=== PATIENT | male | born 1960 | race Caucasian/White ===

== ENCOUNTER 2018-10-20 14:00 | Day surgery (SDC) | payer OTHER, BC ==
[~2018-10-20 14:00] MED LIST: Bactrim Ds Tab1 EACH PO; Flomax0.4 MG PO; KETO10 PO; Keflex250 MG PO; Norco 5-325 Ta1 EACH PO; Percocet 5-3251 EACH PO; Zofran Odt4 MG PO
[2018-10-20] MEDS ORDERED: CEPH500 (19:00)
[2018-10-20] MEDS ORDERED: XARELTO2.5 MG PO (19:00)
[2018-10-20] MEDS ORDERED: HYDR1TAB94 PO (19:01)
[2018-10-20] MEDS ORDERED: TRAM50 PO (19:02)
[2018-11-21] MEDS ORDERED: ONDA8 PO (19:02)
[2018-11-21] MEDS ORDERED: Augmentin 875-1 EACH PO (19:03)
[2018-11-21] MEDS ORDERED: PROC5 PO (19:46)
[2018-11-21] MEDS ORDERED: Pepcid20 MG PO (19:46)
== END 2018-10-20 23:03 | disposition home or self-care (01) ==
LOC: WOUND 14:00
DX: T81.32XA Disruption of internal operation (surgical) wound, not elsewhere classified, initial encounter (principal); R50.9 Fever, unspecified; R11.0 Nausea; L03.115 Cellulitis of right lower limb; Z72.0 Tobacco use
CPT/HCPCS: G0463

== ENCOUNTER 2018-10-20 15:39 | Inpatient (IN) | payer OTHER, BC ==
[~2018-10-20] VITALS: Ht 185.4 cm; Wt 88.9 kg
[2018-10-20 16:58] LABS: BASOPHILS ABSOLUTE AUTO 0.08 K/mm3 (0.00-0.23); BASOPHILS PERCENT AUTO 0 % (0-2); EOSINOPHILS ABSOLUTE AUTO 0.06 K/mm3 (0.00-0.68); EOSINOPHILS PERCENT AUTO 0 % (0-6); Hemoglobin 13.7 g/dL (13.5-17.5); IMMATURE GRAN ABSOLUTE AUTO 0.08 K/mm3 (0.00-0.10); IMMATURE GRAN PERCENT AUTO 0 % (0-1); LYMPHOCYTES ABSOLUTE AUTO 1.93 K/mm3 (0.84-5.20); LYMPHOCYTES PERCENT AUTO 10 % (21-46); MONOCYTES ABSOLUTE AUTO 1.36 K/mm3 (0.16-1.47); MONOCYTES PERCENT AUTO 7 % (4-13); Mean Corpuscular HGB 30.6 pg (26.0-34.0); Mean Corpuscular HGB Conc 33.4 g/dL (31.5-36.5); Mean Corpuscular Volume 92 fL (80-100); Mean Platelet Volume 9.4 fL (9.1-12.4); NEUTROPHILS ABSOLUTE AUTO 15.09 K/mm3 (1.96-9.15); NEUTROPHILS PERCENT AUTO 81 % (41-73); Platelet Count 545 K/mm3 (150-400); RDW Coefficient Variation 12.8 % (11.7-14.2); RDW Standard Deviation 43.2 fL (35.1-46.3); Red Blood Cell Count 4.47 M/mm3 (4.30-5.90)
[2018-10-20 17:16] LABS: Alanine Aminotransfer (ALT/SGP 34 U/L (12-78); Albumin, Blood 3.7 g/dL (3.4-5.0); Albumin/Globulin Ratio 0.9 (0.8-1.8); Alk Phos 89 U/L (50-136); Anion Gap 8 mmol/L (6-16); Aspartate Aminotrans (AST/SGOT 14 U/L (12-37); Bilirubin, Total 0.9 mg/dL (0.1-1.0); Blood Urea Nitrogen 17 mg/dL (8-24); CO2, Blood 26 mmol/L (21-32); Calcium, Blood 9.5 mg/dL (8.5-10.1); Chloride, Blood 100 mmol/L (98-108); Creatinine, Blood 0.77 mg/dL (0.60-1.20); Globulin, Blood 4.1 g/dL (2.2-4.0); Glomerular Filtration Rate >60 (60-); Glucose, Blood 113 mg/dL (70-99); Potassium, Blood 3.9 mmol/L (3.5-5.5); Sodium, Blood 134 mmol/L (136-145); Total Protein, Blood 7.8 g/dL (6.4-8.2)
[2018-10-20] MEDS ORDERED: CEPH500 (19:00)
[2018-10-20] MEDS ORDERED: XARELTO2.5 MG PO (19:00)
[2018-10-20] MEDS ORDERED: HYDR1TAB94 PO (19:01)
[2018-10-20] MEDS ORDERED: TRAM50 PO (19:02)
[2018-10-20 20:05] LABS: International Normalized Ratio 1.11; Prothrombin Time Results 11.4 Sec (9.7-11.5)
[2018-10-21 02:01] LABS: Hematocrit 34.6 % (37.0-53.0); Hemoglobin 11.5 g/dL (13.5-17.5); Mean Corpuscular HGB 30.8 pg (26.0-34.0); Mean Corpuscular HGB Conc 33.2 g/dL (31.5-36.5); Mean Corpuscular Volume 93 fL (80-100); Mean Platelet Volume 9.4 fL (9.1-12.4); Platelet Count 445 K/mm3 (150-400); RDW Coefficient Variation 13.2 % (11.7-14.2); Red Blood Cell Count 3.73 M/mm3 (4.30-5.90); White Blood Cell Count 13.38 K/mm3 (4.00-11.30)
[2018-10-21 02:25] LABS: Alanine Aminotransfer (ALT/SGP 24 U/L (12-78); Albumin, Blood 2.8 g/dL (3.4-5.0); Albumin/Globulin Ratio 0.8 (0.8-1.8); Alk Phos 68 U/L (50-136); Anion Gap 9 mmol/L (6-16); Aspartate Aminotrans (AST/SGOT 11 U/L (12-37); Bilirubin, Total 0.8 mg/dL (0.1-1.0); Blood Urea Nitrogen 16 mg/dL (8-24); Bun/Creatinine Ratio 20.4 (12.0-20.0); CO2, Blood 25 mmol/L (21-32); Calcium, Blood 8.5 mg/dL (8.5-10.1); Chloride, Blood 104 mmol/L (98-108); Creatinine, Blood 0.79 mg/dL (0.60-1.20); Globulin, Blood 3.5 g/dL (2.2-4.0); Glomerular Filtration Rate >60 (60-); Glucose, Blood 137 mg/dL (70-99); Potassium, Blood 3.9 mmol/L (3.5-5.5); Sodium, Blood 138 mmol/L (136-145); Total Protein, Blood 6.3 g/dL (6.4-8.2)
--- NOTE | 2018-10-21 13:25 | NUR ---
PT IS READY FOR SURGERY, PT PLACED IN GOWN, PT HAS EMPTIED BLADDER, PT HAS BEEN NPO SINCE MIDNIGHT.
--- NOTE | 2018-10-21 13:48 | NUR ---
History, Chart, Medications and Allergies reviewed before start of procedure. Lungs clear T/O to Auscultation. Patient confirms NPO status and agrees with scheduled surgery.
--- NOTE | 2018-10-21 14:40 | NUR ---
10/21/18 1440 Josephine Velasquez VANCOMYCIN POWDER SPRINKLED INTO WOUND BY DR. CHRISTINA INTRAOPERATIVELY, PT ON SCHEDULED ANTIBIOTIC
--- NOTE | 2018-10-21 15:52 | NUR ---
"FURNACE COOLER | WASTED DEMEROL IN PYXIS THIS RN AND CHICA GONZALEZ RN WASTED 25NG OF DEMEROL IN THE PYXIS MACHINE. 25MG OF DEMEROL GIVEN TO PATIENT. INITIAL WASTE IN THE PYXIS WAS INCORRECT IT WAS INITIALLY ENTERED 50MG WASTED. THIS WAS THEN EDITED TO 25MG WITH BOTH THIS RN AND CHICA GONZALEZ RN SIGNING ON THE PYXIS."
--- NOTE | 2018-10-21 16:25 | NUR ---
PT BACK FROM PACU. PT IS AWAKE, ALERT AND ORIENTED. WOUND VAC IN PLACE, SUCTION INTACT. MARLYS WRAP TO RIGHT FOOT, C/D/I. PT STATES HIS PAIN IS 8/10. PO NORCO WAS GIVEN. PT IS ON ROOM AIR. VSS. WCTM
--- NOTE | 2018-10-21 20:18 | NUR ---
CONTACTED DR. DOMINGO WITH CRITICAL VALUE - (+) BLOOD CULTURES, GRAM (-) RODS. INFORMED HER THAT PT IS CURRENTLY BEING GIVEN VANC AND ZOSYN. STATES THAT WE WILL CONTINUE CURRENT POC. WILL CONTINUE TO MONITOR.
--- NOTE | 2018-10-22 06:35 | NUR ---
LYING IN SEMI FOWLERS WITH EYES OPEN WHILE WATCHING YOUTUBE ON HIS PHONE. STATES THAT PAIN IF WELL MANAGED. NURSING REITERATED NEED TO CALL FOR 0ASSISTANCE WITH NEEDS, VOICES UNDERSTANDING, DENIES FURTHER NEEDS AT THIS TIME. SAFETY MEASURES IN PLACE. WILL CONTINUE TO MONITOR.
--- NOTE | 2018-10-22 07:15 | NUR ---
recvd report from previous rn jessica, pt asleep in bed, call light within reach, bed rails up x 2, bed in lowest position
--- NOTE | 2018-10-22 07:55 | NUR ---
PT Rene working with pt, lab to draw blood. recvd call from pt's to give update of condition. notified pt. assessed for pain control. pt states it is much better controlled, at 4-5 currently, does not request pain medication at this time
[2018-10-22 08:22] LABS: BASOPHILS ABSOLUTE AUTO 0.05 K/mm3 (0.00-0.23); BASOPHILS PERCENT AUTO 1 % (0-2); EOSINOPHILS PERCENT AUTO 3 % (0-6); Hematocrit 32.9 % (37.0-53.0); Hemoglobin 10.6 g/dL (13.5-17.5); IMMATURE GRAN ABSOLUTE AUTO 0.02 K/mm3 (0.00-0.10); IMMATURE GRAN PERCENT AUTO 0 % (0-1); LYMPHOCYTES ABSOLUTE AUTO 2.62 K/mm3 (0.84-5.20); LYMPHOCYTES PERCENT AUTO 33 % (21-46); MONOCYTES ABSOLUTE AUTO 1.02 K/mm3 (0.16-1.47); MONOCYTES PERCENT AUTO 13 % (4-13); Mean Corpuscular HGB 30.8 pg (26.0-34.0); Mean Corpuscular HGB Conc 32.2 g/dL (31.5-36.5); Mean Platelet Volume 9.7 fL (9.1-12.4); NEUTROPHILS ABSOLUTE AUTO 4.03 K/mm3 (1.96-9.15); NEUTROPHILS PERCENT AUTO 51 % (41-73); Platelet Count 383 K/mm3 (150-400); Red Blood Cell Count 3.44 M/mm3 (4.30-5.90); White Blood Cell Count 7.94 K/mm3 (4.00-11.30)
[2018-10-22 08:23] LABS: Mean Corpuscular Volume 96 fL (80-100)
[2018-10-22 08:28] LABS: Anion Gap 5 mmol/L (6-16); Blood Urea Nitrogen 9 mg/dL (8-24); Bun/Creatinine Ratio 14.7 (12.0-20.0); CO2, Blood 29 mmol/L (21-32); Calcium, Blood 8.5 mg/dL (8.5-10.1); Chloride, Blood 107 mmol/L (98-108); Creatinine, Blood 0.61 mg/dL (0.60-1.20); Glomerular Filtration Rate >60 (60-); Glucose, Blood 100 mg/dL (70-99); Potassium, Blood 3.9 mmol/L (3.5-5.5); Sodium, Blood 141 mmol/L (136-145)
[2018-10-22 08:30] LABS: Vancomycin, Trough 7.9 ug/mL (5.0-10.0)
--- NOTE | 2018-10-22 16:53 | NUR ---
shift summary: pt remained a/0 x 4, pleasant/cooperative, no n/v, tolerated regular diet intake, urine output >600 ml, no BM this shift. pt states pain controlled oer DEC, states to pain control to 2-3/ following medication. Dr Cook and Dr. Galindo to round on pt this shift. pt received IV abx per mar wnl. pt worked with physical therapy x 1 today. family visited x 4 today.
[2018-10-23 05:13] LABS: BASOPHILS ABSOLUTE AUTO 0.05 K/mm3 (0.00-0.23); BASOPHILS PERCENT AUTO 1 % (0-2); EOSINOPHILS ABSOLUTE AUTO 0.31 K/mm3 (0.00-0.68); EOSINOPHILS PERCENT AUTO 5 % (0-6); Hematocrit 34.1 % (37.0-53.0); Hemoglobin 11.1 g/dL (13.5-17.5); IMMATURE GRAN ABSOLUTE AUTO 0.01 K/mm3 (0.00-0.10); IMMATURE GRAN PERCENT AUTO 0 % (0-1); LYMPHOCYTES ABSOLUTE AUTO 3.23 K/mm3 (0.84-5.20); LYMPHOCYTES PERCENT AUTO 52 % (21-46); MONOCYTES ABSOLUTE AUTO 0.56 K/mm3 (0.16-1.47); MONOCYTES PERCENT AUTO 9 % (4-13); Mean Corpuscular HGB 30.9 pg (26.0-34.0); Mean Corpuscular HGB Conc 32.6 g/dL (31.5-36.5); Mean Corpuscular Volume 95 fL (80-100); NEUTROPHILS ABSOLUTE AUTO 2.07 K/mm3 (1.96-9.15); NEUTROPHILS PERCENT AUTO 33 % (41-73); Platelet Count 460 K/mm3 (150-400); RDW Coefficient Variation 12.6 % (11.7-14.2); RDW Standard Deviation 43.6 fL (35.1-46.3); Red Blood Cell Count 3.59 M/mm3 (4.30-5.90); White Blood Cell Count 6.23 K/mm3 (4.00-11.30)
--- NOTE | 2018-10-23 08:23 | NUR ---
SUMMARY PT REQURING PO AND IV PAIN MEDS TONIGHT.CONTINUES ABLE TO WIGGLE TOES R. WOUND VAC PATENT. PT RECEIVING IV ANTIBIOTICS. PT PRELIMINARY BLOOD CX WAS POSITIVE AND FINAL REPORT POSITIVE REPORTED TO Mao HICKS.
--- NOTE | 2018-10-23 12:36 | NUR ---
Initial Visit: Palliative Care Consult for AD/POLST and symptom management. Pt resting in bed and is A&O x 4. He reports 6/10 pain in his right leg. He reports the current regimen is managing his pain. He reports he will get another pain pill soon and will bring the pain down to 3/10 or less. Pt daphne dyspnea and anxiety. He is of [place] and lives at home with his and mother in law. Pt reports being able to ambulate independently with the FWW and when home he has crutches he can use. He also reports that he has a wheel chair at home if needed. Discussion was made about Advance Directives and POLST. Pt expresses interest and request information on both. Educated Pt on both forms. Pt states he would like to wait to fill forms out until his arrives. Instructed Pt to call palliative care if any questions arise when completing forms. Spoke with Pt's nurse and she reports no concerns at this time. notes indicate wound vac may be D/C today or tomorrow and will be able to further evaluate wound. Plan is to obtain POLST and or Advance Directive once completed. Plan to F/U tomorrow upon 's decision of wound vac. If continuation of wound vac is required then home health referral may be indicated. Will remain available.
--- NOTE | 2018-10-23 15:20 | NUR ---
SHIFT SUMMARY PT A&OX4, VSS, AFEBRILE, TELE SR @ 71. POD#2 I&D RLE, WOUND VAC & MARLYS WRAP ON, ELEVATED, ICE ON, NWB. PAIN MANAGED WITH 10 MG NORCO Q4. PABLO PO, DENIES N&V. VOIDING WELL, USES URINAL. AMB W/FWW & GB TO BRP FOR 2 BM'S TODAY, DOES WELL NWB. PT NEEDS NEW WALKING BOOT PRIOR TO DC; OLD BOOT NEEDS TO BE DISCARDED D/T CONCERNS IT MAY HAVE SOME INFECTIOUS MATERIAL ON IT. PLAN IS FOR WOUND VAC TO BE DC'D TOMORROW AND THEN SURGEON WILL DECIDE HOW TO PROCEED. WILL CTM & TX PER EMAR UNTIL REPORT GIVEN TO NEXT RN.
--- NOTE | 2018-10-24 07:05 | NUR ---
recvd report from previous RN Costa, pt awake in bed, a/0 x 4, pleasant/cooperative. pt reports pain controlled to his expectation. bed rails up x 2, operative foot elevated with ice pack, wound vac sealed and functioning. call light within reach.
--- NOTE | 2018-10-24 07:30 | NUR ---
SUMMARY PT TOLERATING PO PAIN MEDS WITH REPORT OF GOOD EFFECT.
--- NOTE | 2018-10-24 12:00 | NUR ---
dr cash to round on pt, removed wound vac dressing and gave instructions for redressing. pt up in chair, medicated for wound vac change. 1215- account installer Megan and this RN changed wound vac dressing per MD instructions, pt tolerated well
--- NOTE | 2018-10-24 17:12 | NUR ---
shift summary: vss, no acute changes, pt reports no n/v, tolerated regular diet. pt with >800 ml urine output clear yellow urine. pt tolerated PO pain medication with control of pain per pt's expectation. Dr. Cook removed wound vac to assess and ordered change of dressing. Dr Marie rounded on pt and awaiting infectious disease consult. pt will be receiving outpatient IV therapy following PICC line insertion and discharge. per protocol, pt will require blood cultures to determine positive/negative culture prior to PICC line insertion. Procedural nurse will be available tomorrow if negative blood culture for PICC insertion. pt up to bathroom x 1 this shift.
--- NOTE | 2018-10-25 06:48 | NUR ---
LYING IN SEMI FOWLERS WHILE WATCHING TV. NO FURTHER CHANGES SINCE START OF SHIFT. PAIN MANAGED WITH PO PAIN MEDS PER MD ORDERS. PT RESTED WELL THIS SHIFT. WOKE UP IN PAIN A COUPLE OF TIMES AND STATED THAT HE WISHED THAT HE HAD WOKEN UP BEFORE THE PAIN BECAME BAD IT WAS EACH TIME. DENIES FURHTER NEEDS AT THIS TIME. SAFETY MEASURES IN PLACE. WILL GIVE HAND OFF TO ONCOMING SHIFT USING SBAR DURING BEDSIDE REPORT.
--- NOTE | 2018-10-25 17:26 | NUR ---
SHIFT SUMMARY PATIENT HAS BEEN RELAXED TODAY. MEDICATED ONCE FOR PAIN TODAY, AND ONCE FOR NAUSEA. PATIENT HAS BEEN PLEASANT WITH MYSELF, HAD A LONG CONVERSATION WITH THE PATIENT TODAY ABOUT THE POSSIBLE EFFECTS OF REBOUND NAUSEA AFTER HE ASKED WHY HE FELT THAT HE WAS GETTING SICK. THE PATIENT IS ALERT AND ORIENTED. PATIENT GOT HIMSELF TO THE BATHROOM TODAY
--- NOTE | 2018-10-25 20:56 | NUR ---
TO ASSIST HIM IF NEEDED.
--- NOTE | 2018-10-26 04:49 | NUR ---
SUMMARY NO ACUTE CHANGES NOTED FROM ASSESSMENT. WOUND VAC REMAINS IN PLACE, SUCTION INTACT. CIRC WNL, PT DENIES N/T. PAIN MANAGED WITH PO NORCO. VSS. PT USING THE URINAL THROUGH THE NIGHT. VOIDING WNL. CALL LIGHT IN REACH.
--- NOTE | 2018-10-26 18:51 | NUR ---
SHIFT SUMMARY PT A&OX4, VSS. POD #5 I&D RLE, WOUND VAC IN PLACE, NEW BOOT IN ROOM, NWB. PAIN MANAGED WITH 10 MG OXY. PABLO PO, DENIES N&V, DOES REPORT 4 SOFT BM'S TODAY FOLLOWING MEALS. PT AMB NWB W/SBA & FWW TO BRP. PICC PLACED IN LUE TODAY, FLUSHES WELL, INFUSING ANTIBIOTICS SCHEDULED PER EMAR. PLAN IS FOR DC TOMORROW. WILL CTM & TX PER EMAR UNTIL REPORT GIVEN TO ONCOMING LORNA RN.
--- NOTE | 2018-10-27 06:59 | NUR ---
GEOFFREY PT TAKING PO PAIN MEDS Q 4 HR WITH REPORTED GOOD EFFECT. PT SLEPT OFF AND ON. IV ANTIBIOTICS INFUSING. PT ANXIOUS FOR DISCHARGE HOME .
[2018-10-27 08:19] LABS: BASOPHILS ABSOLUTE AUTO 0.05 K/mm3 (0.00-0.23); BASOPHILS PERCENT AUTO 1 % (0-2); EOSINOPHILS ABSOLUTE AUTO 0.51 K/mm3 (0.00-0.68); EOSINOPHILS PERCENT AUTO 6 % (0-6); Hematocrit 34.5 % (37.0-53.0); Hemoglobin 11.1 g/dL (13.5-17.5); IMMATURE GRAN ABSOLUTE AUTO 0.02 K/mm3 (0.00-0.10); IMMATURE GRAN PERCENT AUTO 0 % (0-1); LYMPHOCYTES ABSOLUTE AUTO 3.25 K/mm3 (0.84-5.20); LYMPHOCYTES PERCENT AUTO 35 % (21-46); MONOCYTES ABSOLUTE AUTO 0.69 K/mm3 (0.16-1.47); MONOCYTES PERCENT AUTO 7 % (4-13); Mean Corpuscular HGB 30.1 pg (26.0-34.0); Mean Corpuscular HGB Conc 32.2 g/dL (31.5-36.5); Mean Corpuscular Volume 94 fL (80-100); Mean Platelet Volume 9.6 fL (9.1-12.4); NEUTROPHILS ABSOLUTE AUTO 4.81 K/mm3 (1.96-9.15); NEUTROPHILS PERCENT AUTO 52 % (41-73); Platelet Count 525 K/mm3 (150-400); RDW Coefficient Variation 12.9 % (11.7-14.2); RDW Standard Deviation 43.8 fL (35.1-46.3); Red Blood Cell Count 3.69 M/mm3 (4.30-5.90); White Blood Cell Count 9.33 K/mm3 (4.00-11.30)
[2018-10-27 08:41] LABS: Anion Gap 7 mmol/L (6-16); Blood Urea Nitrogen 13 mg/dL (8-24); Bun/Creatinine Ratio 17.5 (12.0-20.0); CO2, Blood 29 mmol/L (21-32); Calcium, Blood 8.8 mg/dL (8.5-10.1); Chloride, Blood 104 mmol/L (98-108); Creatinine, Blood 0.74 mg/dL (0.60-1.20); Glomerular Filtration Rate >60 (60-); Glucose, Blood 116 mg/dL (70-99); Potassium, Blood 3.8 mmol/L (3.5-5.5); Sodium, Blood 140 mmol/L (136-145)
--- NOTE | 2018-10-27 15:23 | NUR ---
SHIFT SUMMARY PT A&OX4, VSS, POD#6 I&D RLE, WOUND VAC, MARLYS WRAP, ELEVATED, ICE ON. PAIN MANAGED WITH 10 MG NORCO. PABLO PO, DENIES N&V. VOIDING WELL USING URINAL. AMB SBA W/FWW TO BRP FOR BM'S; PT DOES WELL NWB. PICC LINE LUE FLUSHES AND DRAWS WELL. PLAN IS FOR DC TOMORROW; AWAITING HOME IV PUMP; PT HAS APPOINTMENT AT [facility] FOR WOUND VAC CHANGE AT 1530. WILL CTM & TX PER EMAR UNTIL REPORT GIVEN TO ONCLORENA ROTHMAN RN.
--- NOTE | 2018-10-27 17:34 | NUR ---
SHREYAS FROM [facility] CALLED AND CANCELLED WOUND VAC APPT AT 1530 ON Wednesday10/28/18. THE PLAN IS FOR THE NURSE TO CHANGE WOUND VAC AND DRESSING CHANGE PRIOR TO PT'S DISCHARGE ON SATURDAY 10/28, AND THEN PT FOLLOW UP WITH ORTHO SURGEON ON AND NEW ORDERS CAN BE OBTAINED FOR PT'S CONTINUANCE OF CARE AT WOUND CLINIC.
--- NOTE | 2018-10-28 06:17 | NUR ---
SUMMARY PT CONTINUES WITH NORCO PO FOR PAIN CONTROL. PT ANXIOUS FOR POSSIBILTY OF DISCHARGE HOME TODAY.
--- NOTE | 2018-10-28 18:24 | NUR ---
SHIFT SUMMARY ASSUMED CARE AT 1500, PT HAS BEEN APPROPRAITE. WOUND VAC AND PICC DRSG CHANGED. ARRANGEMENTS MADE FOR DISCHARGE TOMORROW. PER DR CHRISTINA, WOUND VAC TO BE CHANGED WEDNESDAY AT HIS OFFICE AND THEN EVERY 4 DAYS AFTER BY HOME HEALTH. IV ABX SUPPLIES AND MEDICATIONS TO BE DELIVERED TONIGHT. SPOKE WITH [facility] EDUCATOR WHOM PLANS TO BE HERE BETWEEN [phone] TO COMPLETE EDUCATION.
--- NOTE | 2018-10-29 04:08 | NUR ---
SHIFT SUMMARY: PT POD 7 FOR I&D FOR PREVIOUS TIB/FIB FX. PAIN MANAGED WITH NORCO Q4. ABX INFUSING. SALINE LOCKED BETWEEN TX. MARLYS WRAP C/D/I. SHIPMENT OF MEDICAL EQUIPMENT ARRIVED ON TIME. SITTING IN PT'S ROOM. PLAN IS FOR PT TO DISCHARGE THIS MORNING AFTER MEETING WITH NURSE EDUCATOR ABOUT HOME ABX INFUSIONS. NO CONCERNS AT THIS TIME. CALL LIGHT IN REACH.
[2018-10-29] MEDS ORDERED: SACC250C PO (13:02)
[2018-10-29] MEDS ORDERED: Zosyn 4.54.5 GM/100 IV (13:02)
--- NOTE | 2018-10-29 16:25 | NUR ---
SHIFT SUMMARY/DC PT HAS HAD NO ACUTE CHANGES THIS SHIFT, MEDICATED PER MAR FOR PAIN. SWITCHED WOUND VAC FOR VAC THAT PT WILL BE USING AT HOME-EDUCATED ON CHANGING CANISTERS AND TROUBLE SHOOTING ALARMS. LG IS W/PT AT THIS TIME INSTRUCTING PT & ON HOME IV ANTIBIOTIC INFUSIONS. REVIEWED DC INSTRUCTIONS W/PT & , BOTH VERBALIZED UNDERSTANDING. RX CALLED/FAXED TO [facility]. WILL CONT TO MONITOR PT UNTIL TRANSPORTED OUT FOR DC.
--- NOTE | 2018-10-29 17:43 | NUR ---
DC PT WAS TRANSPORTED VIA W/C TO [facility] IN PRIVATE VEHICLE @ 1695
[2018-11-21] MEDS ORDERED: ONDA8 PO (19:02)
[2018-11-21] MEDS ORDERED: Augmentin 875-1 EACH PO (19:03)
[2018-11-21] MEDS ORDERED: Pepcid20 MG PO (19:46)
[2018-11-21] MEDS ORDERED: PROC5 PO (19:46)
== END 2018-10-29 17:54 | disposition home or self-care (01) | DRG 856 ==
LOC: ER 15:39 → SURS 19:36
PROVIDERS: Internal Medicine; Nurse Practitioner Acute Care; Orthopaedic Surgery; Physician Assistant; ADMIT Hospitalist
PROC: 0JBN0ZZ Excision of Right Lower Leg Subcutaneous Tissue and Fascia, Open Approach (ICD-10-PCS; principal; 2018-10-21 14:30)
DX: T81.44XA Sepsis following a procedure, initial encounter (principal); A41.01 Sepsis due to Methicillin susceptible Staphylococcus aureus; T81.30XA Disruption of wound, unspecified, initial encounter; F17.210 Nicotine dependence, cigarettes, uncomplicated; K59.00 Constipation, unspecified; S82.309 Unspecified fracture of lower end of unspecified tibia; B96.6 Bacteroides fragilis [B. fragilis] as the cause of diseases classified elsewhere; B96.89 Other specified bacterial agents as the cause of diseases classified elsewhere
CPT/HCPCS: 36415; 36569; 73706; 80048; 80053; 80202; 83605; 85025; 85027; 85610; 85651; 86140; 87040; 87070; 87075; 87076; 87077; 87147; 87185; 87186; 87205; 96365; 96375; 96376; 97161; 97530; 99285-25; C1751; C1894; G8978; G8979; G8980; J1170; J1650; J2250; J2405; J2543; J3010; J3370; J7030; J7040; J7120; Q9967

== ENCOUNTER 2018-11-09 09:03 | Emergency (ER) | payer OTHER, BC ==
[~2018-11-09] VITALS: Ht 185.4 cm; Wt 78.5 kg
[~2018-11-09 09:03] MED LIST changes: +CEPH500; +HYDR1TAB94 PO; +SACC250C PO; +TRAM50 PO; +XARELTO2.5 MG PO; +Zosyn 4.54.5 GM/100 IV
[2018-11-09 09:42] LABS: Source, Urine Voided
[2018-11-09 09:46] LABS: Bilirubin, Urine Neg (Neg); Blood, Urine 1+ (Neg); Glucose Qualitative, Urine Neg (Neg); Ketones, Urine Neg (Neg); Leukocyte Esterase, Urine Neg (Neg); Nitrite, Urine Neg (Neg); Protein, Urine Neg (Neg); Urobilinogen, Urine NORM (Normal)
[2018-11-09 09:50] LABS: BASOPHILS ABSOLUTE AUTO 0.07 K/mm3 (0.00-0.23); BASOPHILS PERCENT AUTO 1 % (0-2); EOSINOPHILS ABSOLUTE AUTO 0.68 K/mm3 (0.00-0.68); EOSINOPHILS PERCENT AUTO 8 % (0-6); Hematocrit 38.4 % (37.0-53.0); Hemoglobin 12.9 g/dL (13.5-17.5); IMMATURE GRAN ABSOLUTE AUTO 0.02 K/mm3 (0.00-0.10); IMMATURE GRAN PERCENT AUTO 0 % (0-1); LYMPHOCYTES ABSOLUTE AUTO 2.34 K/mm3 (0.84-5.20); LYMPHOCYTES PERCENT AUTO 27 % (21-46); MONOCYTES ABSOLUTE AUTO 0.77 K/mm3 (0.16-1.47); MONOCYTES PERCENT AUTO 9 % (4-13); Mean Corpuscular HGB 30.4 pg (26.0-34.0); Mean Corpuscular HGB Conc 33.6 g/dL (31.5-36.5); NEUTROPHILS ABSOLUTE AUTO 4.88 K/mm3 (1.96-9.15); NEUTROPHILS PERCENT AUTO 56 % (41-73); Platelet Count 361 K/mm3 (150-400); RDW Standard Deviation 42.6 fL (35.1-46.3); Red Blood Cell Count 4.25 M/mm3 (4.30-5.90); White Blood Cell Count 8.76 K/mm3 (4.00-11.30)
[2018-11-09 09:51] LABS: Mean Corpuscular Volume 90 fL (80-100)
[2018-11-09 09:52] LABS: Appearance, Urine Clear (Clear); Color, Urine Pale Yellow (P-Yellow)
[2018-11-09 09:53] LABS: Bacteria Not Seen /hpf; Red Blood Cells, Urine Not Seen /hpf (0-2); Squamous Epithelial Cells Few /hpf (Few); White Blood Cells, Urine Not Seen /hpf (0-5)
[2018-11-09 10:10] LABS: Influenza A Negative (NEGATIVE); Influenza B Negative (NEGATIVE)
[2018-11-09 10:16] LABS: Alanine Aminotransfer (ALT/SGP 47 U/L (12-78); Albumin, Blood 3.6 g/dL (3.4-5.0); Alk Phos 71 U/L (50-136); Anion Gap 7 mmol/L (6-16); Aspartate Aminotrans (AST/SGOT 18 U/L (12-37); Bilirubin, Total 0.4 mg/dL (0.1-1.0); Blood Urea Nitrogen 10 mg/dL (8-24); Bun/Creatinine Ratio 15.9 (12.0-20.0); CO2, Blood 26 mmol/L (21-32); Chloride, Blood 107 mmol/L (98-108); Creatinine, Blood 0.63 mg/dL (0.60-1.20); Globulin, Blood 3.6 g/dL (2.2-4.0); Glomerular Filtration Rate >60 (60-); Glucose, Blood 79 mg/dL (70-99); Potassium, Blood 3.8 mmol/L (3.5-5.5); Sodium, Blood 140 mmol/L (136-145); Total Protein, Blood 7.2 g/dL (6.4-8.2)
[2018-11-09] MEDS ORDERED: Zofran8 MG PO (13:01)
[2018-11-09 23:57] LABS: Adenovirus F 40/41 Not Detected (NOT DETECT); Astrovirus Not Detected (NOT DETECT); Campylobacter Sp Not Detected (NOT DETECT); Cryptosporidium Not Detected (NOT DETECT); Cyclospora Cayetanensis Not Detected (NOT DETECT); E. Coli O157 Not Detected (NOT DETECT); Entamoeba Histolytica Not Detected (NOT DETECT); Enteroaggregative E. coli-EAEC Not Detected (NOT DETECT); Enteropathogenic E. coli-EPEC Not Detected (NOT DETECT); Enterotoxigenic E. coli-ETEC Not Detected (NOT DETECT); Giardia Lamblia Not Detected (NOT DETECT); Norovirus GI/GII Not Detected (NOT DETECT); Plesiomonas Shigelloides Not Detected (NOT DETECT); Rotavirus A Not Detected (NOT DETECT); Salmonella Sp Not Detected (NOT DETECT); Sapovirus Not Detected (NOT DETECT); Shiga Toxin-prod E. coli-STEC Not Detected (NOT DETECT); Shigella/Enteroin E. coli-EIEC Not Detected (NOT DETECT); Vibrio Cholerae Not Detected (NOT DETECT); Vibrio Sp Not Detected (NOT DETECT); Yersinia Enterocolitica Not Detected (NOT DETECT)
[2018-11-21] MEDS ORDERED: ONDA8 PO (19:02)
[2018-11-21] MEDS ORDERED: Augmentin 875-1 EACH PO (19:03)
[2018-11-21] MEDS ORDERED: PROC5 PO (19:46)
[2018-11-21] MEDS ORDERED: Pepcid20 MG PO (19:46)
== END 2018-11-09 13:27 | disposition home or self-care (01) ==
LOC: ER 09:03
PROVIDERS: Emergency Medicine
DX: R10.30 Lower abdominal pain, unspecified (principal); Z79.899 Other long term (current) drug therapy; Z87.891 Personal history of nicotine dependence
CPT/HCPCS: 36415; 74177; 80053; 81001; 85025; 87507; 87804; 96361; 96374; 96375; 99284-25; J1170; J2405; J7030; Q9967

== ENCOUNTER → 2018-12-16 | Outpatient (CLI) | payer OTHER, BC ==
[~2018-12-16] MED LIST changes: +Augmentin 875-1 EACH PO; +CHOL10002 PO; +ONDA8 PO; +PROC5 PO; +Pepcid20 MG PO; +Tylenol325 MG PO; +Zofran8 MG PO
== END | disposition home or self-care (01) ==
LOC: LAB SHORT 09:58 → LAB 09:58
DX: R19.7 Diarrhea, unspecified (principal)
CPT/HCPCS: 87493

== ENCOUNTER 2018-12-28 09:29 | Day surgery (SDC) | payer OTHER, BC ==
[~2018-12-28] VITALS: Ht 185.4 cm; Wt 84.0 kg
[~2018-12-28 09:29] MED LIST changes: -CHOL10002 PO; -Tylenol325 MG PO
[2018-12-28] MEDS ORDERED: Tylenol325 MG PO (10:35)
[2018-12-28] MEDS ORDERED: CHOL10002 PO (10:35)
--- NOTE | 2018-12-28 16:35 | NUR ---
PT VERBALIZED UNDRESTANDING OF D/C INSTRUCTIONS. LEFT GROIN SITE APPEARS TO BE STABLE. CLEAR TEGADERM INTACT, SOFT NON-TENDER, NO ACTIVE BLEEDING, OOZING, OR PAIN NOTED. IV REMOVED FROM LAC WITH CATH INTACT, PRESSURE DRESSING APPLIED. PT GETS DRESSED WITH NO NEEDED ASSISTANCE, WOUND VAC STILL IN PLACE TO RIGHT MEDIAL ANKLE. HERE TO DRIVE PT HOME. PT TAKEN OUT TO VEHICLE VIA W/C. ENCOURAGED TO FOLLOW UP WITH ORTHO SURGEON SCHEDULED. PT GIVEN DOCTORS OFFICE PHONE NUMBER TO CALL WITH ANY QUESTIONS OR CONCERNS TO DR. MCGLADE. OLIVAREZ AT TIME OF DISPO. VSS.
== END 2018-12-28 16:44 | disposition home or self-care (01) ==
LOC: MHTC 09:29
DX: I73.9 Peripheral vascular disease, unspecified (principal); E78.5 Hyperlipidemia, unspecified; Z87.891 Personal history of nicotine dependence
CPT/HCPCS: 99152; 99153; C1760; C1769; C1887; C1894; J1644; J2250; J3010; J7030; Q9967

== ENCOUNTER → 2019-02-20 | Outpatient (CLI) | payer OTHER, BC ==
[~2019-02-20] MED LIST changes: +CHOL10002 PO; +Hydrocodone-Ap1 EA23; +Tylenol325 MG PO; +VANCOMYCIN1.75 GM/50
[2019-02-20 10:51] LABS: BASOPHILS ABSOLUTE AUTO 0.07 K/mm3 (0.00-0.23); BASOPHILS PERCENT AUTO 1 % (0-2); EOSINOPHILS ABSOLUTE AUTO 0.54 K/mm3 (0.00-0.68); EOSINOPHILS PERCENT AUTO 5 % (0-6); IMMATURE GRAN ABSOLUTE AUTO 0.04 K/mm3 (0.00-0.10); IMMATURE GRAN PERCENT AUTO 0 % (0-1); LYMPHOCYTES ABSOLUTE AUTO 3.47 K/mm3 (0.84-5.20); LYMPHOCYTES PERCENT AUTO 29 % (21-46); MONOCYTES ABSOLUTE AUTO 0.81 K/mm3 (0.16-1.47); MONOCYTES PERCENT AUTO 7 % (4-13); Mean Corpuscular HGB 29.8 pg (26.0-34.0); Mean Corpuscular HGB Conc 33.3 g/dL (31.5-36.5); Mean Corpuscular Volume 89 fL (80-100); NEUTROPHILS ABSOLUTE AUTO 7.01 K/mm3 (1.96-9.15); NEUTROPHILS PERCENT AUTO 59 % (41-73); Platelet Count 290 K/mm3 (150-400); RDW Coefficient Variation 12.9 % (11.7-14.2); RDW Standard Deviation 42.4 fL (35.1-46.3); Red Blood Cell Count 4.36 M/mm3 (4.30-5.90); White Blood Cell Count 11.94 K/mm3 (4.00-11.30)
[2019-02-20 11:54] LABS: Alanine Aminotransfer (ALT/SGP 33 U/L (12-78); Albumin, Blood 3.3 g/dL (3.4-5.0); Alk Phos 82 U/L (50-136); Anion Gap 7 mmol/L (6-16); Aspartate Aminotrans (AST/SGOT 14 U/L (12-37); Bilirubin, Total 0.4 mg/dL (0.1-1.0); Blood Urea Nitrogen 11 mg/dL (8-24); Bun/Creatinine Ratio 18.5 (12.0-20.0); CO2, Blood 27 mmol/L (21-32); Calcium, Blood 8.8 mg/dL (8.5-10.1); Chloride, Blood 106 mmol/L (98-108); Creatinine, Blood 0.59 mg/dL (0.60-1.20); Globulin, Blood 3.4 g/dL (2.2-4.0); Glomerular Filtration Rate >60 (60-); Glucose, Blood 132 mg/dL (70-99); Potassium, Blood 3.7 mmol/L (3.5-5.5); Sodium, Blood 140 mmol/L (136-145); Total Protein, Blood 6.7 g/dL (6.4-8.2); Vancomycin, Random 13.7 ug/mL
== END | disposition home or self-care (01) ==
LOC: LAB 10:40 → LAB SHORT 10:40
PROVIDERS: Internal Medicine Infectious Disease
DX: T81.49XA Infection following a procedure, other surgical site, initial encounter (principal); T81.31XA Disruption of external operation (surgical) wound, not elsewhere classified, initial encounter
CPT/HCPCS: 80053; 80202; 85025; 85651; 86140

== ENCOUNTER → 2019-02-27 | Outpatient (CLI) | payer BC ==
[2019-02-27 13:27] LABS: Hematocrit 38.4 % (37.0-53.0); Hemoglobin 12.9 g/dL (13.5-17.5); Mean Corpuscular HGB 29.9 pg (26.0-34.0); Mean Corpuscular HGB Conc 33.6 g/dL (31.5-36.5); Mean Corpuscular Volume 89 fL (80-100); Mean Platelet Volume 11.4 fL (9.1-12.4); Platelet Count 331 K/mm3 (150-400); RDW Coefficient Variation 12.5 % (11.7-14.2); RDW Standard Deviation 41.4 fL (35.1-46.3); Red Blood Cell Count 4.32 M/mm3 (4.30-5.90); White Blood Cell Count 9.65 K/mm3 (4.00-11.30)
[2019-02-27 14:05] LABS: Alanine Aminotransfer (ALT/SGP 24 U/L (12-78); Albumin, Blood 3.2 g/dL (3.4-5.0); Albumin/Globulin Ratio 0.9 (0.8-1.8); Alk Phos 80 U/L (50-136); Anion Gap 7 mmol/L (6-16); Aspartate Aminotrans (AST/SGOT 11 U/L (12-37); Bilirubin, Total 0.3 mg/dL (0.1-1.0); Blood Urea Nitrogen 8 mg/dL (8-24); Bun/Creatinine Ratio 11.3 (12.0-20.0); CO2, Blood 28 mmol/L (21-32); Calcium, Blood 9.1 mg/dL (8.5-10.1); Chloride, Blood 106 mmol/L (98-108); Creatinine, Blood 0.71 mg/dL (0.60-1.20); Globulin, Blood 3.5 g/dL (2.2-4.0); Glomerular Filtration Rate >60 (60-); Glucose, Blood 112 mg/dL (70-99); Potassium, Blood 3.5 mmol/L (3.5-5.5); Sodium, Blood 141 mmol/L (136-145); Total Protein, Blood 6.7 g/dL (6.4-8.2); Vancomycin, Random 17.5 ug/mL
== END | disposition home or self-care (01) ==
LOC: LAB HH 10:33
PROVIDERS: Internal Medicine Infectious Disease
DX: T81.49XA Infection following a procedure, other surgical site, initial encounter (principal); T81.31XA Disruption of external operation (surgical) wound, not elsewhere classified, initial encounter
CPT/HCPCS: 80053; 80202; 85027; 85651; 86140

== ENCOUNTER → 2019-03-06 | Outpatient (CLI) | payer OTHER, BC ==
[~2019-03-06] MED LIST changes: +FAMO40 PO; +ONDA4 PO
[2019-03-06 13:27] LABS: BASOPHILS ABSOLUTE AUTO 0.06 K/mm3 (0.00-0.23); BASOPHILS PERCENT AUTO 1 % (0-2); EOSINOPHILS ABSOLUTE AUTO 0.49 K/mm3 (0.00-0.68); EOSINOPHILS PERCENT AUTO 5 % (0-6); Hematocrit 37.2 % (37.0-53.0); Hemoglobin 12.1 g/dL (13.5-17.5); IMMATURE GRAN ABSOLUTE AUTO 0.02 K/mm3 (0.00-0.10); IMMATURE GRAN PERCENT AUTO 0 % (0-1); LYMPHOCYTES ABSOLUTE AUTO 2.54 K/mm3 (0.84-5.20); LYMPHOCYTES PERCENT AUTO 28 % (21-46); MONOCYTES ABSOLUTE AUTO 0.93 K/mm3 (0.16-1.47); MONOCYTES PERCENT AUTO 10 % (4-13); Mean Corpuscular HGB Conc 32.5 g/dL (31.5-36.5); Mean Corpuscular Volume 89 fL (80-100); Mean Platelet Volume 10.6 fL (9.1-12.4); NEUTROPHILS ABSOLUTE AUTO 5.02 K/mm3 (1.96-9.15); NEUTROPHILS PERCENT AUTO 55 % (41-73); Platelet Count 418 K/mm3 (150-400); RDW Coefficient Variation 12.6 % (11.7-14.2); RDW Standard Deviation 41.1 fL (35.1-46.3); Red Blood Cell Count 4.17 M/mm3 (4.30-5.90); White Blood Cell Count 9.06 K/mm3 (4.00-11.30)
[2019-03-06 14:01] LABS: Alanine Aminotransfer (ALT/SGP 36 U/L (12-78); Albumin, Blood 3.2 g/dL (3.4-5.0); Albumin/Globulin Ratio 0.9 (0.8-1.8); Alk Phos 78 U/L (50-136); Anion Gap 10 mmol/L (6-16); Aspartate Aminotrans (AST/SGOT 15 U/L (12-37); Bilirubin, Total 0.5 mg/dL (0.1-1.0); Blood Urea Nitrogen 10 mg/dL (8-24); Bun/Creatinine Ratio 14.8 (12.0-20.0); CO2, Blood 27 mmol/L (21-32); Calcium, Blood 9.3 mg/dL (8.5-10.1); Chloride, Blood 107 mmol/L (98-108); Creatinine, Blood 0.68 mg/dL (0.60-1.20); Globulin, Blood 3.6 g/dL (2.2-4.0); Glomerular Filtration Rate >60 (60-); Glucose, Blood 108 mg/dL (70-99); Potassium, Blood 3.6 mmol/L (3.5-5.5); Sodium, Blood 144 mmol/L (136-145); Total Protein, Blood 6.8 g/dL (6.4-8.2); Vancomycin, Random 22.8 ug/mL
== END | disposition home or self-care (01) ==
LOC: LAB HH 11:11 → LAB SHORT 11:11
PROVIDERS: Internal Medicine Infectious Disease
DX: T81.49XA Infection following a procedure, other surgical site, initial encounter (principal); T81.31XA Disruption of external operation (surgical) wound, not elsewhere classified, initial encounter
CPT/HCPCS: 80053; 80202; 85025; 85651; 86140

== ENCOUNTER → 2019-03-13 | Outpatient (CLI) | payer OTHER, BC ==
[2019-03-13 13:26] LABS: BASOPHILS ABSOLUTE AUTO 0.08 K/mm3 (0.00-0.23); BASOPHILS PERCENT AUTO 1 % (0-2); EOSINOPHILS ABSOLUTE AUTO 0.36 K/mm3 (0.00-0.68); EOSINOPHILS PERCENT AUTO 4 % (0-6); Hematocrit 39.7 % (37.0-53.0); IMMATURE GRAN ABSOLUTE AUTO 0.01 K/mm3 (0.00-0.10); IMMATURE GRAN PERCENT AUTO 0 % (0-1); LYMPHOCYTES ABSOLUTE AUTO 3.28 K/mm3 (0.84-5.20); LYMPHOCYTES PERCENT AUTO 36 % (21-46); MONOCYTES ABSOLUTE AUTO 0.87 K/mm3 (0.16-1.47); MONOCYTES PERCENT AUTO 10 % (4-13); Mean Corpuscular HGB 29.1 pg (26.0-34.0); Mean Corpuscular HGB Conc 32.7 g/dL (31.5-36.5); Mean Corpuscular Volume 89 fL (80-100); Mean Platelet Volume 10.4 fL (9.1-12.4); NEUTROPHILS ABSOLUTE AUTO 4.53 K/mm3 (1.96-9.15); NEUTROPHILS PERCENT AUTO 50 % (41-73); Platelet Count 446 K/mm3 (150-400); RDW Coefficient Variation 12.7 % (11.7-14.2); RDW Standard Deviation 41.4 fL (35.1-46.3); Red Blood Cell Count 4.46 M/mm3 (4.30-5.90); White Blood Cell Count 9.13 K/mm3 (4.00-11.30)
[2019-03-13 14:18] LABS: Alanine Aminotransfer (ALT/SGP 29 U/L (12-78); Albumin, Blood 3.6 g/dL (3.4-5.0); Alk Phos 96 U/L (50-136); Anion Gap 7 mmol/L (6-16); Aspartate Aminotrans (AST/SGOT 11 U/L (12-37); Bilirubin, Total 0.5 mg/dL (0.1-1.0); Blood Urea Nitrogen 10 mg/dL (8-24); Bun/Creatinine Ratio 13.4 (12.0-20.0); CO2, Blood 28 mmol/L (21-32); Chloride, Blood 104 mmol/L (98-108); Creatinine, Blood 0.75 mg/dL (0.60-1.20); Globulin, Blood 3.5 g/dL (2.2-4.0); Glomerular Filtration Rate >60 (60-); Glucose, Blood 89 mg/dL (70-99); Potassium, Blood 3.7 mmol/L (3.5-5.5); Sodium, Blood 139 mmol/L (136-145); Total Protein, Blood 7.1 g/dL (6.4-8.2); Vancomycin, Random 15.6 ug/mL
== END | disposition home or self-care (01) ==
LOC: LAB SHORT 10:05 → LAB HH 10:05
PROVIDERS: Internal Medicine Infectious Disease
DX: M86.251 Subacute osteomyelitis, right femur (principal)
CPT/HCPCS: 80053; 80202; 85025; 85651; 86140

== ENCOUNTER → 2019-03-20 | Outpatient (CLI) | payer BC ==
[2019-03-20 10:57] LABS: BASOPHILS ABSOLUTE AUTO 0.06 K/mm3 (0.00-0.23); BASOPHILS PERCENT AUTO 1 % (0-2); EOSINOPHILS ABSOLUTE AUTO 0.45 K/mm3 (0.00-0.68); EOSINOPHILS PERCENT AUTO 6 % (0-6); Hematocrit 37.4 % (37.0-53.0); Hemoglobin 12.3 g/dL (13.5-17.5); IMMATURE GRAN ABSOLUTE AUTO 0.03 K/mm3 (0.00-0.10); IMMATURE GRAN PERCENT AUTO 0 % (0-1); LYMPHOCYTES ABSOLUTE AUTO 2.62 K/mm3 (0.84-5.20); LYMPHOCYTES PERCENT AUTO 34 % (21-46); MONOCYTES ABSOLUTE AUTO 0.78 K/mm3 (0.16-1.47); MONOCYTES PERCENT AUTO 10 % (4-13); Mean Corpuscular HGB 29.3 pg (26.0-34.0); Mean Corpuscular HGB Conc 32.9 g/dL (31.5-36.5); Mean Corpuscular Volume 89 fL (80-100); Mean Platelet Volume 10.8 fL (9.1-12.4); NEUTROPHILS ABSOLUTE AUTO 3.72 K/mm3 (1.96-9.15); NEUTROPHILS PERCENT AUTO 49 % (41-73); Platelet Count 346 K/mm3 (150-400); RDW Coefficient Variation 12.9 % (11.7-14.2); RDW Standard Deviation 41.9 fL (35.1-46.3); White Blood Cell Count 7.66 K/mm3 (4.00-11.30)
[2019-03-20 11:28] LABS: Alanine Aminotransfer (ALT/SGP 24 U/L (12-78); Albumin, Blood 3.5 g/dL (3.4-5.0); Alk Phos 90 U/L (50-136); Anion Gap 4 mmol/L (6-16); Aspartate Aminotrans (AST/SGOT 12 U/L (12-37); Bilirubin, Total 0.4 mg/dL (0.1-1.0); Blood Urea Nitrogen 14 mg/dL (8-24); Bun/Creatinine Ratio 18.6 (12.0-20.0); CO2, Blood 27 mmol/L (21-32); Calcium, Blood 9.3 mg/dL (8.5-10.1); Chloride, Blood 107 mmol/L (98-108); Creatinine, Blood 0.75 mg/dL (0.60-1.20); Globulin, Blood 3.5 g/dL (2.2-4.0); Glomerular Filtration Rate >60 (60-); Glucose, Blood 103 mg/dL (70-99); Potassium, Blood 3.8 mmol/L (3.5-5.5); Sodium, Blood 138 mmol/L (136-145); Vancomycin, Random 14.7 ug/mL
== END ==
LOC: LAB HH 10:44
PROVIDERS: Internal Medicine Infectious Disease
DX: T81.31XA Disruption of external operation (surgical) wound, not elsewhere classified, initial encounter (principal); Z79.2 Long term (current) use of antibiotics
CPT/HCPCS: 80053; 80202; 85025; 85651; 86140

== ENCOUNTER → 2019-03-27 | Outpatient (CLI) | payer BC ==
[2019-03-27 13:46] LABS: BASOPHILS ABSOLUTE AUTO 0.06 K/mm3 (0.00-0.23); BASOPHILS PERCENT AUTO 1 % (0-2); EOSINOPHILS ABSOLUTE AUTO 0.41 K/mm3 (0.00-0.68); EOSINOPHILS PERCENT AUTO 7 % (0-6); Hematocrit 38.6 % (37.0-53.0); Hemoglobin 12.3 g/dL (13.5-17.5); IMMATURE GRAN ABSOLUTE AUTO 0.02 K/mm3 (0.00-0.10); IMMATURE GRAN PERCENT AUTO 0 % (0-1); LYMPHOCYTES ABSOLUTE AUTO 2.22 K/mm3 (0.84-5.20); LYMPHOCYTES PERCENT AUTO 36 % (21-46); MONOCYTES ABSOLUTE AUTO 0.69 K/mm3 (0.16-1.47); MONOCYTES PERCENT AUTO 11 % (4-13); Mean Corpuscular HGB 29.3 pg (26.0-34.0); Mean Corpuscular HGB Conc 31.9 g/dL (31.5-36.5); Mean Corpuscular Volume 92 fL (80-100); Mean Platelet Volume 11.1 fL (9.1-12.4); NEUTROPHILS ABSOLUTE AUTO 2.79 K/mm3 (1.96-9.15); NEUTROPHILS PERCENT AUTO 45 % (41-73); Platelet Count 291 K/mm3 (150-400); RDW Standard Deviation 43.8 fL (35.1-46.3); White Blood Cell Count 6.19 K/mm3 (4.00-11.30)
[2019-03-27 15:10] LABS: Alanine Aminotransfer (ALT/SGP 30 U/L (12-78); Albumin, Blood 3.4 g/dL (3.4-5.0); Alk Phos 85 U/L (50-136); Anion Gap 6 mmol/L (6-16); Aspartate Aminotrans (AST/SGOT 36 U/L (12-37); Bilirubin, Total 0.7 mg/dL (0.1-1.0); Blood Urea Nitrogen 15 mg/dL (8-24); Bun/Creatinine Ratio 21.2 (12.0-20.0); C-REACTIVE PROTEIN, EXT RANGE 0.585 mg/dL (0.000-0.300); CO2, Blood 25 mmol/L (21-32); Chloride, Blood 108 mmol/L (98-108); Creatinine, Blood 0.71 mg/dL (0.60-1.20); Globulin, Blood 3.3 g/dL (2.2-4.0); Glomerular Filtration Rate >60 (60-); Glucose, Blood 102 mg/dL (70-99); Potassium, Blood 4.9 mmol/L (3.5-5.5); Sodium, Blood 139 mmol/L (136-145); Total Protein, Blood 6.7 g/dL (6.4-8.2); Vancomycin, Random 14.4 ug/mL
== END | disposition home or self-care (01) ==
LOC: LAB SHORT 09:05 → LAB HH 09:05
PROVIDERS: Internal Medicine Infectious Disease
DX: T81.31XA Disruption of external operation (surgical) wound, not elsewhere classified, initial encounter (principal); T81.49XA Infection following a procedure, other surgical site, initial encounter
CPT/HCPCS: 36415; 80053; 80202; 85025; 85651; 86140

== ENCOUNTER → 2019-04-03 | Outpatient (CLI) | payer OTHER, BC ==
[2019-04-03 12:55] LABS: BASOPHILS ABSOLUTE AUTO 0.06 K/mm3 (0.00-0.23); BASOPHILS PERCENT AUTO 1 % (0-2); EOSINOPHILS PERCENT AUTO 6 % (0-6); Hemoglobin 13.1 g/dL (13.5-17.5); IMMATURE GRAN ABSOLUTE AUTO 0.02 K/mm3 (0.00-0.10); IMMATURE GRAN PERCENT AUTO 0 % (0-1); LYMPHOCYTES PERCENT AUTO 38 % (21-46); MONOCYTES ABSOLUTE AUTO 0.73 K/mm3 (0.16-1.47); MONOCYTES PERCENT AUTO 11 % (4-13); Mean Corpuscular HGB 29.5 pg (26.0-34.0); Mean Corpuscular HGB Conc 32.8 g/dL (31.5-36.5); Mean Corpuscular Volume 90 fL (80-100); NEUTROPHILS ABSOLUTE AUTO 2.98 K/mm3 (1.96-9.15); NEUTROPHILS PERCENT AUTO 44 % (41-73); Platelet Count 293 K/mm3 (150-400); RDW Coefficient Variation 13.1 % (11.7-14.2); RDW Standard Deviation 43.4 fL (35.1-46.3); Red Blood Cell Count 4.44 M/mm3 (4.30-5.90); White Blood Cell Count 6.79 K/mm3 (4.00-11.30)
[2019-04-03 15:07] LABS: Alanine Aminotransfer (ALT/SGP 29 U/L (12-78); Albumin, Blood 3.8 g/dL (3.4-5.0); Albumin/Globulin Ratio 1.2 (0.8-1.8); Alk Phos 97 U/L (50-136); Anion Gap 8 mmol/L (6-16); Aspartate Aminotrans (AST/SGOT 14 U/L (12-37); Bilirubin, Total 0.7 mg/dL (0.1-1.0); Blood Urea Nitrogen 15 mg/dL (8-24); Bun/Creatinine Ratio 22.2 (12.0-20.0); C-REACTIVE PROTEIN, EXT RANGE 0.469 mg/dL (0.000-0.300); CO2, Blood 24 mmol/L (21-32); Calcium, Blood 9.5 mg/dL (8.5-10.1); Chloride, Blood 109 mmol/L (98-108); Creatinine, Blood 0.68 mg/dL (0.60-1.20); Globulin, Blood 3.3 g/dL (2.2-4.0); Glomerular Filtration Rate >60 (60-); Glucose, Blood 81 mg/dL (70-99); Potassium, Blood 4.1 mmol/L (3.5-5.5); Sodium, Blood 141 mmol/L (136-145); Total Protein, Blood 7.1 g/dL (6.4-8.2); Vancomycin, Trough 15.5 ug/mL (5.0-10.0)
== END | disposition home or self-care (01) ==
LOC: LAB SHORT 09:00 → LAB HH 09:00
PROVIDERS: Internal Medicine Infectious Disease
DX: T81.49XA Infection following a procedure, other surgical site, initial encounter (principal); T81.31XA Disruption of external operation (surgical) wound, not elsewhere classified, initial encounter
CPT/HCPCS: 36415; 80053; 80202; 85025; 85651; 86140

== ENCOUNTER 2019-04-18 11:50 | Day surgery (SDC) | payer OTHER, BC | END 2019-04-18 22:59 | disposition home or self-care (01) | LOC: WOUND 11:50 | DX: S91.001A Unspecified open wound, right ankle, initial encounter (principal); J45.909 Unspecified asthma, uncomplicated; M19.90 Unspecified osteoarthritis, unspecified site | CPT/HCPCS: G0463 ==

== ENCOUNTER 2019-04-25 11:05 | Day surgery (SDC) | payer OTHER, BC | END 2019-04-25 23:25 | disposition home or self-care (01) | LOC: WOUND 11:05 | DX: T81.49XA Infection following a procedure, other surgical site, initial encounter (principal); I73.9 Peripheral vascular disease, unspecified; J45.909 Unspecified asthma, uncomplicated; G62.9 Polyneuropathy, unspecified; E78.5 Hyperlipidemia, unspecified; F17.200 Nicotine dependence, unspecified, uncomplicated; Z87.81 Personal history of (healed) traumatic fracture | CPT/HCPCS: G0463 ==

== ENCOUNTER 2021-04-29 08:14 | Day surgery (SDC) | payer OTHER ==
[~2021-04-29] VITALS: Ht 182.9 cm; Wt 87.7 kg
[~2021-04-29 08:14] MED LIST changes: +CENTRUM SILVER1 EAC2 PO; +GABA300 PO; +ONDA4ODT MM; +THERA-D2000 UNIT PO; +Vitamin B-121000 MCG PO
--- NOTE | 2021-04-29 08:45 | NUR ---
Ambulatory in Day Surgery. Patient confirms NPO status and agrees with scheduled surgery. Patient States Post-Procedure ride home has been arranged. History, Chart, Medications and Allergies reviewed before start of procedure. Lungs clear T/O to Auscultation.
--- NOTE | 2021-04-29 09:23 | NUR ---
04/29/21 0923 Travis Rodrigez History, Chart, Medications and Allergies reviewed before start of procedure. MONITOR INTACT WITH CONTINUOUS PULSE OXIMETRY AND INTERMITTENT BP. 3-LEAD EKG REVIEWED WITH PHYSICIAN PRIOR TO START OF PROCEDURE. O2 VIA N/C INTACT THROUGHOUT SEDATION/PROCEDURE. PATIENT DETERMINED TO BE ASA APPROPRIATE FOR PROPOFOL SEDATION PRIOR TO START OF PROCEDURE BY DR. COLLINS.
--- NOTE | 2021-04-29 09:48 | NUR ---
Patient up to Ambulate independently. Gait steady. Discharge instructions reviewed with patient. Patient verbalizes understanding. Copy given to patient to take home.Lungs clear T/O to Auscultation. Patient States Post-Procedure ride home has been arranged. Discharged via wheelchair to private car for ride home.
== END 2021-04-29 09:51 | disposition home or self-care (01) ==
LOC: ORSCMMR 08:14 → ORD 09:00 → ORSCMMR 09:51
PROVIDERS: Internal Medicine Gastroenterology
PROC: 0DBK8ZX Excision of Ascending Colon, Via Natural or Artificial Opening Endoscopic, Diagnostic (ICD-10-PCS; principal; 2021-04-29 09:00)
PROC: 0DBN8ZX Excision of Sigmoid Colon, Via Natural or Artificial Opening Endoscopic, Diagnostic (ICD-10-PCS; principal; 2021-04-29 09:00)
PROC: 0DBB8ZX Excision of Ileum, Via Natural or Artificial Opening Endoscopic, Diagnostic (ICD-10-PCS; principal; 2021-04-29 09:00)
PROC: 0DBL8ZX Excision of Transverse Colon, Via Natural or Artificial Opening Endoscopic, Diagnostic (ICD-10-PCS; principal; 2021-04-29 09:00)
DX: R19.4 Change in bowel habit (principal); K57.30 Diverticulosis of large intestine without perforation or abscess without bleeding
CPT/HCPCS: 88305; J2704; J7120

== ENCOUNTER 2022-10-19 18:44 | Observation (INO) | payer OTHER ==
[~2022-10-19] VITALS: Ht 185.4 cm; Wt 97.3 kg
[~2022-10-19 18:44] MED LIST changes: -Hydrocodone-Ap1 EA23
[2022-10-19 19:12] LABS: BASOPHILS ABSOLUTE AUTO 0.07 K/mm3 (0.00-0.23); BASOPHILS PERCENT AUTO 1 % (0-2); EOSINOPHILS ABSOLUTE AUTO 0.25 K/mm3 (0.00-0.68); EOSINOPHILS PERCENT AUTO 3 % (0-6); Hematocrit 38.6 % (37.0-53.0); Hemoglobin 13.2 g/dL (13.5-17.5); IMMATURE GRAN ABSOLUTE AUTO 0.03 K/mm3 (0.00-0.10); IMMATURE GRAN PERCENT AUTO 0 % (0-1); LYMPHOCYTES ABSOLUTE AUTO 3.04 K/mm3 (0.84-5.20); LYMPHOCYTES PERCENT AUTO 31 % (21-46); MONOCYTES ABSOLUTE AUTO 0.83 K/mm3 (0.16-1.47); MONOCYTES PERCENT AUTO 8 % (4-13); Mean Corpuscular HGB 30.1 pg (26.0-34.0); Mean Corpuscular HGB Conc 34.2 g/dL (31.5-36.5); Mean Corpuscular Volume 88 fL (80-100); Mean Platelet Volume 10.3 fL (9.1-12.4); NEUTROPHILS ABSOLUTE AUTO 5.75 K/mm3 (1.96-9.15); NEUTROPHILS PERCENT AUTO 58 % (41-73); Platelet Count 248 K/mm3 (150-400); RDW Coefficient Variation 12.7 % (11.7-14.2); RDW Standard Deviation 41.1 fL (35.1-46.3); Red Blood Cell Count 4.39 M/mm3 (4.30-5.90); White Blood Cell Count 9.97 K/mm3 (4.00-11.30)
[2022-10-19 20:28] LABS: Albumin, Blood 3.7 g/dL (3.4-5.0); Albumin/Globulin Ratio 1.3 (0.8-1.8); Bilirubin, Total 0.5 mg/dL (0.1-1.0); Bun/Creatinine Ratio 26.6 (12.0-20.0); Calcium, Blood 8.9 mg/dL (8.5-10.1); Creatinine, Blood 0.75 mg/dL (0.60-1.20); Globulin, Blood 2.9 g/dL (2.2-4.0); Potassium, Blood 3.7 mmol/L (3.5-5.5); Total Protein, Blood 6.6 g/dL (6.4-8.2)
--- NOTE | 2022-10-20 06:36 | NUR ---
SHIFT SUMMARY PT ADMITTED AT 2330- PT A&O X 4- PT C/O HEADACHE- PT MEDICATED WITH TYLENOL IN ED- CALL TO DR. LO GOT A NEW ORDER FOR TORADOL - PT ABLE TO SLEEP- PT USED URINAL WITHOUT PROBLEMS- MRI FORM DONE WITH PATIENT - PT SLEPT T/O NIGHT
[2022-10-20 07:15] LABS: BASOPHILS ABSOLUTE AUTO 0.05 K/mm3 (0.00-0.23); BASOPHILS PERCENT AUTO 1 % (0-2); EOSINOPHILS ABSOLUTE AUTO 0.26 K/mm3 (0.00-0.68); EOSINOPHILS PERCENT AUTO 3 % (0-6); Hematocrit 38.9 % (37.0-53.0); Hemoglobin 13.1 g/dL (13.5-17.5); IMMATURE GRAN ABSOLUTE AUTO 0.02 K/mm3 (0.00-0.10); IMMATURE GRAN PERCENT AUTO 0 % (0-1); LYMPHOCYTES ABSOLUTE AUTO 3.84 K/mm3 (0.84-5.20); LYMPHOCYTES PERCENT AUTO 51 % (21-46); MONOCYTES ABSOLUTE AUTO 0.61 K/mm3 (0.16-1.47); MONOCYTES PERCENT AUTO 8 % (4-13); Mean Corpuscular HGB 29.8 pg (26.0-34.0); Mean Corpuscular HGB Conc 33.7 g/dL (31.5-36.5); Mean Corpuscular Volume 89 fL (80-100); Mean Platelet Volume 10.8 fL (9.1-12.4); NEUTROPHILS ABSOLUTE AUTO 2.77 K/mm3 (1.96-9.15); NEUTROPHILS PERCENT AUTO 37 % (41-73); Platelet Count 238 K/mm3 (150-400); RDW Coefficient Variation 12.9 % (11.7-14.2); RDW Standard Deviation 41.8 fL (35.1-46.3); Red Blood Cell Count 4.39 M/mm3 (4.30-5.90); White Blood Cell Count 7.55 K/mm3 (4.00-11.30)
[2022-10-20 07:28] LABS: Calcium, Blood 8.7 mg/dL (8.5-10.1); Creatinine, Blood 0.74 mg/dL (0.60-1.20); Magnesium, Blood 2.2 mg/dL (1.6-2.4); Potassium, Blood 3.8 mmol/L (3.5-5.5)
[2022-10-20] MEDS ORDERED: Norco 5-325 MG PO (10:38)
[2022-10-20] MEDS ORDERED: MECL25 PO (16:11)
[2022-10-20] MEDS ORDERED: ONDA4 PO (16:12)
--- NOTE | 2022-10-20 16:44 | NUR ---
NOTES/DISCHARGE SUMMARY: PATIENT A&OX4. PLEASANT AND COOPERATIVE c CARE. USES CALL LIGHT APPROPRIATELY AND ABLE TO ADVOCATE FOR HIS NEEDS. PATIENT HAD MRI DONE THIS AM. PATIENT REPORTS OF HEADACHE 03/03. MEDICATED X1 c TORADOL AND X1 c NORCO. PATIENT REPORTS PAIN DOWN 10/29. 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 VITAL SIGNS REVIEWED. DENIES N/V. DENIES SOB. DENIES CP/CHEST DISCOMFORT. IV TO L AC WAS DC'D. PATIENT DISCHARGE HOME. DISCHARGE INSTRUCTIONS PACKET GIVEN TO PATIENT. EDUCATE PATIENT REGARDING ADMITTING DX, S/S, TX, AND NEW PRESCRIBED MEDICATIONS. PATIENT STATED UNDERSTANDING AND NO FURTHER QUESTIONS. RX WAS FAXED TO PATIENT PREFERRED PHARMACY ([facility]). ALL PATIENT PERSONAL BELONGINGS WERE SENT HOME WITH THE PATIENT. PATIENT LEFT THE ROOM AT 1642 TRANSPORTED VIA WHEELCHAIR BY FAMILY ASSESSMENT WORKER STAFF DELANEY DE OLIVEIRA TO PATIENT VEHICLE.
== END 2022-10-20 16:35 | disposition home or self-care (01) ==
LOC: ER 18:44 → MEDS 18:45
PROVIDERS: Student in an Organized Health Care Education/Training Program; ADMIT Student in an Organized Health Care Education/Training Program
DX: R42 Dizziness and giddiness (principal); I10 Essential (primary) hypertension; R00.1 Bradycardia, unspecified; Z87.891 Personal history of nicotine dependence; Z88.5 Allergy status to narcotic agent
CPT/HCPCS: 36415; 70553; 80048; 80053; 83690; 83735; 84443; 85025; 93005; 93010; 96372; 96374; 96375; 96376; 97110; 97162; 99285-25; A9270; A9579; G0378; J1650; J1885; J2405; J3360; J7030

== ENCOUNTER → 2023-09-13 | Outpatient (CLI) | payer OTHER ==
[~2023-09-13] MED LIST changes: +MECL25 PO; +Norco 5-325 MG PO
[2023-09-13 19:32] LABS: Amorphous Light (0-Heavy); Bacteria Mod /hpf; Red Blood Cells, Urine 0-2 /hpf (0-2); Squamous Epithelial Cells Rare /hpf (Few); White Blood Cells, Urine 0-2 /hpf (0-5)
== END ==
LOC: LAB 13:40 → LAB SHORT 13:40
PROVIDERS: Student in an Organized Health Care Education/Training Program
DX: R35.0 Frequency of micturition (principal)
CPT/HCPCS: 81015